=== PATIENT | male | born 1980 | race Caucasian/White ===

== ENCOUNTER 2017-12-28 19:02 | Inpatient (IN) | payer MEDICAID, OTHER ==
[2017-12-28 19:03] VITALS: BMI 25.0
--- NOTE | 2017-12-28 19:29 | C.PDOC ---
History Of Present Illness The patient presents to the ED requesting heroin detox. Patient states his last use was prior to arrival. He denies suicidal/homicidal ideation and has no physical complaints at this time. Time Seen by Provider: 12/28/17 19:29 Chief Complaint (Nursing): Substance Abuse History Per: Patient History/Exam Limitations: no limitations Onset/Duration Of Symptoms: Hrs Current Symptoms Are (Timing): Still Present Suicide/Self Injury Attempted (Context): None Modifying Factor(s): Narcotics (heroin ) Severity: None Pain Scale Rating Of: 0 Associated Symptoms: denies: Suicidal Thoughts, Suicidal Plan Involuntary Hold By: None Recent travel outside of the [place]: No Additional History Per: Patient Past Medical History Reviewed: Historical Data, Nursing Documentation, Vital Signs Vital Signs: Last Vital Signs Temp 98.7 F 12/28/17 19:11 Pulse 95 H 12/28/17 19:11 Resp 18 12/28/17 19:11 BP 96/60 L 12/28/17 19:11 Pulse Ox 94 L 12/28/17 20:34 - Medical History PMH: Bipolar Disorder, Depression, Fractures, HTN Denies: Diabetes, Hepatitis, HIV, Seizures, Sexually Transmitted Disease Surgical History: No Surg Hx Family History: States: Unknown Family Hx - Social History Hx Tobacco Use: Yes Hx Alcohol Use: No Hx Substance Use: Yes (heroin) - Immunization History Hx Tetanus Toxoid Vaccination: No Hx Influenza Vaccination: No Hx Pneumococcal Vaccination: No Review Of Systems Constitutional: Negative for: Fever, Chills Cardiovascular: Negative for: Chest Pain, Palpitations Respiratory: Negative for: Cough, Shortness of Breath Gastrointestinal: Negative for: Nausea, Vomiting, Abdominal Pain Skin: Negative for: Rash, Lesions, Jaundice, Bruising Neurological: Negative for: Weakness, Numbness Psych: Positive for: Other (heroin detox ). Negative for: Suicidal ideation Physical Exam - Physical Exam Appears: Non-toxic, No Acute Distress Skin: Warm, Dry Head: Normacephalic Eye(s): bilateral: Normal Inspection Oral Mucosa: Moist Neck: Supple Chest: Symmetrical, No Deformity, No Tenderness Cardiovascular: Rhythm Regular Respiratory: No Accessory Muscle Use Extremity: Normal ROM Neurological/Psych: Oriented x3 Gait: Steady ED Course And Treatment - Laboratory Results Result Diagrams: 12/28/17 19:50 12/28/17 19:50 O2 Sat by Pulse Oximetry: 94 Pulse Ox Interpretation: Normal Progress Note: Bloodwork and urinalysis ordered and reviewed. Disposition Discussed With .: Lesley Holt Comment: accepted the pt [facility] is service and took over the care at 9:30 PM Doctor Will See Patient In The: Hospital Counseled Patient/Family Regarding: Studies Performed, Diagnosis - Disposition Disposition: HOSPITALIZED Disposition Time: 19:29 Condition: FAIR Forms: [facility] (Nauruan) - POA Present On Arrival: None - Clinical Impression Clinical Impression: Heroin abuse - Scribe Statement The provider has reviewed the documentation as recorded by the Scribe (Diana Tran) Provider Attestation: All medical record entries made by the Scribe were at my direction and personally dictated by me. I have reviewed the chart and agree that the record accurately reflects my personal performance of the history, physical exam, medical decision making, and the department course for this patient. I have also personally directed, reviewed, and agree with the discharge instructions and disposition. Decision To Admit - Pt Status Changed To: Hospital Disposition Of: Inpatient - Admit Certification Admit to Inpatient:: After my assessment, the patient will require hospitalization for at least two midnights. This is because of the severity of symptoms shown, intensity of services needed, and/or the medical risk in this patient being treated as an outpatient. - InPatient: Physician Admission Certification: I certify that this patient requires 2 or more midnights of care for the following reason:: After my assessment, the patient will require hospitalization for at least two midnights. This is because of the severity of symptoms shown, intensity of services needed, and/or the medical risk in this patient being treated as an outpatient. - . Bed Request Type: Detox Admitting Physician: Lesley Holt Patient Diagnosis: Heroin abuse
[2017-12-28 19:54] LABS: BASO # 0.1 K/uL (0.0-0.2); BASO % 0.7 % (0.0-2.0); EOS # 0.4 K/uL (0.0-0.7); EOS % 3.6 % (0.0-4.0); HEMOGLOBIN 12.6 g/dL (12.0-18.0); LYMPH # 1.6 K/uL (1.0-4.3); MEAN CELL VOLUME 83.3 fL (80.0-94.0); MEAN CORPUSCULAR HEMOGLOBIN 28.1 pg (27.0-31.0); MEAN CORPUSCULAR HGB CONC 33.7 g/dL (33.0-37.0); MEAN PLATELET VOLUME 8.1 fL (7.2-11.7); MONO # 1.2 K/uL (0.0-0.8); MONO % 9.7 % (0.0-10.0); NEUT # 8.9 K/uL (1.8-7.0); NRBC % 0.1 % (0.0-2.0); RBC 4.48 Mil/uL (4.40-5.90); RED CELL DISTRIBUTION WIDTH 14.8 % (11.5-14.5); WHITE BLOOD COUNT 12.1 K/uL (4.8-10.8)
[2017-12-28 19:57] LABS: SQUAMOUS EPITHIAL < 1 /hpf (0-5); URINE BILIRUBIN NEGATIVE (NEGATIVE); URINE BLOOD NEGATIVE (NEGATIVE); URINE CLARITY Hazy (Clear); URINE COLOR Amber (YELLOW); URINE GLUCOSE (UA) NORMAL (Normal); URINE LEUKOCYTE ESTERASE NEG Leu/uL (Negative); URINE PROTEIN NEGATIVE (NEGATIVE)
[2017-12-28 20:07] LABS: ALB/GLOB RATIO 2.1 (1.0-2.1); ALT/SGPT 24 U/L (21-72); AST/SGOT 10 U/L (17-59); BLOOD UREA NITROGEN 12 mg/dL (9-20); CALCIUM 8.2 mg/dl (8.6-10.4); GFR NON-AFRICAN AMERICAN > 60
[2017-12-28 20:15] LABS: BARBITURATES, UR NEGATIVE (NEGATIVE); BENZODIAZEPINES, UR NEGATIVE (NEGATIVE); PHENCYCLIDINE, UR NEGATIVE (NEGATIVE)
[2017-12-28 20:16] LABS: OPIATES, UR POSITIVE (NEGATIVE)
--- NOTE | 2017-12-28 21:52 | PCM.BM ---
<JonoAna María - Last Filed: 12/28/17 21:51> Treatment Plan Problems - Problems identified on initial assessmt Potential for opiate withdrawal Date Initiated: 12/28/17 Time Initiated: 21:51 Assessment reference: NA Status: Active Treatment assets and liabiliti Patient Assests: ADL independent, negotiates basic needs, cognitively intact Patient Liabilities: substance abuse (opiate), medical problems (HTN) - Milieu Protocol Maintain good personal hygiene: daily Encourage regular showers, daily Remind patient to perform daily oral care, daily Assist patient to perform ADL's Conduct patient checks and document Observation sheet: Q15 minutes Maintain personal safety: every shift Educate patient to report safety concerns to staff, every shift Monitor environment for contraband/sharps Medication safety: Monitor for expected outcome, potential side effects: every shift, Assess barriers to learning: every shift, Assess readiness for medication education: every shift <Rose Tavarez - Last Filed: 12/30/17 10:45> Family Contact Family involvement: Famliy/SO not involved - Goals for Treatment Patient goals for treatment: Complete detox and transition to outpatient counseling. Discharge/Continuing Care - Education Needs Education Needs: Patient Medication, Patient Diagnosis/Disease Process, Patient Coping Skills, Patient Anger Management skills, Patient Placement options, Patient Community resources - Discharge Discharge Criteria: No longer exhibiting s/s of withdrawal, Reduction of target symptoms Discharge to:: Home, With Family - Additional Comments 12/30/17 10:44 "I have to go back to work. I can do outpatient ok".
[2017-12-28] MEDS ORDERED: Aluminum Hydroxide/Magnesium Hydroxide Susp (30 mL) PO PRN (22:31)
[2017-12-29] MEDS ORDERED: Albuterol HFA 90 mcg/actuation (8 g) INH PRN (08:00)
[2017-12-29] MEDS ORDERED: Buprenorphine Hydrochloride 2 mg SL ONE ×2 (09:49→11:00)
--- NOTE | 2017-12-29 23:49 | PCM.PSYCH ---
Initial Psychiatric Evaluation - Initial Psychiatric Evaluation Type of Admission: Voluntary Legal Status: Capacity Chief Complaint (in patient's own words): "I am withdrawing" History of Present Illness and Precipitating Events: The pt is a 37 year old male who is single, has no children, and lives with his friend. 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 Chart reviewed, case discussed. Pt presenting for opioid detoxification. He states that he snorted 10 bags of heroin. The last time he used heroin was yesterday. He has been using it for four years now. He underwent detoxification few years ago, but then relapsed afterwards. He denies having any rehabs for it. He reports not finding any other detox that will take him. Pt also admitted to abusing cocaine (4 bottles) intranasally about once or twice a week. Pt also smokes cigarettes, 1 pack/day. He denies EtOH use, as well as benzodiazepines. He denies using other form of drugs. Psych Hx: Pt has felt depressed lately. He denies feeling tired or lonely. He denies having any manic episodes. Pt also states that he hears voices when he uses. Pt denies panic attacks, OCD, SI, HI but he feels depressed. Pt denies any traumatic Hx. He was given Lynbrook but he doesn't know why and doesn't report levon. Medical Hx: hypertension. Uncontrolled Family psychiatry Hx: Unremarkable Current Medications: Active Medications Generic Name Dose Route Start Last Admin Trade Name Freq PRN Reason Stop Dose Admin Al Hydrox/Mg Hydrox/Simethicone 30 ml 12/28/17 22:31 Maalox 30 Ml PO TID PRN Indigestion / Heartburn Albuterol 1 puff 12/29/17 08:00 12/29/17 09:10 Ventolin Hfa 90 Mcg/Actuation (8 G) INH 1 puff RQ4 PRN Administration Shortness of Breath Clonidine HCl 0.1 mg 12/28/17 22:31 Catapres PO Q8 PRN COWS Score More or Equal to 5 Hydroxyzine HCl 50 mg 12/28/17 22:27 12/28/17 22:34 Atarax PO 50 mg Q6H PRN Administration Anxiety Loperamide HCl 2 mg 12/28/17 22:31 Imodium PO Q8 PRN Diarrhea Nicotine 1 patch 12/29/17 10:00 12/29/17 09:11 Nicoderm Cq TD 1 patch DAILY MARIAH Administration Ondansetron HCl 4 mg 12/28/17 22:31 Zofran Tab PO Q8 PRN Nausea/Vomiting Quetiapine Fumarate 100 mg 12/29/17 22:00 12/29/17 21:32 Seroquel PO 100 mg HS MARIAH Administration Trazodone HCl 100 mg 12/28/17 22:27 12/29/17 21:33 Desyrel PO 100 mg HS PRN Administration Insomnia Past Psychiatric History - Past Psychiatric History Previous Treatment History: None Pertinent Medical Hx (Current Medical&Sleep Prob, Allergies): Allergies Allergy/AdvReac Type Severity Reaction Status Date / Time No Known Allergies Allergy Verified 04/20/17 00:43 Gabapentin [Neurontin] 300 mg PO TID 12/28/17 Lynbrook Carbonate [Lynbrook Carbonate 300MG] 300 cap PO TID 12/28/17 Review of Systems - Psychiatric Psychiatric: Abnormal Sleep Pattern, Anhedonia, Anxiety, Depression, Difficulty Concentrating. absent: Hallucinations, Homicidal Ideation, Irritability, Paranoia, Suicidal Ideation Mental Status Examination - Personal Presentation Personal Presentation: Looks older than stated age - Affect Affect: Constricted - Motor Activity Motor Activity: Calm - Reliability in Providing Information Reliability in Providing Information: Good - Speech Speech: Organized - Mood Mood: Depressed, Anxious - Formal Thought Process Formal Thought Process: No Impairment - Cognitive Functions Orientation: Person, Place, Situation, Time Sensorium: Alert Attention/Concentration: Easily distracted Abstract Thinking: [place] Estimate of Intelligence: Average Judgement: Intact, as evidence by: Insight regarding need for hospitalization Memory: Recent intact, as evidence by: Ability to recall events of the day, Remote impaired as evidenced by: Inability to recall sig life events - Risk Risk: Withdrawal, Diminished functioning - Strength & Assets Inventory Strength & Assets Inventory: Cooperative - Limitations Limitations: Living alone DSM 5 DX - DSM 5 DSM 5 Diagnosis: Opioid withdrawal Opioid use d/o - severe Cocaine use d/o - severe Major depression, recurrent, modertae SCARLET r/o bipolar type II Tobacco use d/o - severe - Recommended/Plan of Treatment Treatment Recommendations and Plan of Treatment: Subutex detox Seroquel for depression Atarax for anxiety As needed medications Gabapentin for augmentation All risks, benefits and alternatives of medications, including no medications, discussed and the patient understood and agreed. Attend groups and activities Supportive therapy and psychoeducation MT for abstinence CBT for relapse prevention Encourage MAT Refer to rehab or IOP Attend self-help groups as well MT for smoking cessation and patch if needed 34 min Projected ELOS: 4-5 days Prognosis: good w treatment - Smoking Cessation Smoking Cessation Initiated: Yes
[2017-12-30] MEDS: Buprenorphine Hydrochloride 2 mg SL SCH (09:11)
--- NOTE | 2017-12-30 13:24 | PCM.PYCHPN ---
Psychiatric Progress Note - Psychiatric Progress Note Patient seen today, length of contact: 16 min Patient Chief Complaint: "I don't sleep well" Problems Identified/Issues Discussed: The pt is seen, chart reviewed, case discussed with staff. The pt is compliant with medications and reports no side-effects. Symptoms are improving but needs more time to stabilize. Anxious and had poor sleep - Both addressed Pt attends groups and activities. Support given, psycho-education provided. After care discussed. Medication Change: Yes (detox changes daily) Medical Record Reviewed: Yes Mental Status Examination - Cognitive Function Orientation: Person, Place, Situation, Time Memory: Intact Attention: Poor Concentration: Poor Association: WNL Fund of Knowledge: Poor - Mood Mood: Depressed, Anxious - Affect Affect: Constricted - Speech Speech: Appropriate - Formal Thought Process Formal Thought Process: No Impairment - Suicidal Ideation Suicidal Ideation: No - Homicidal Ideation Homicidal Ideation: No Goal/Treatment Plan - Goal/Treatment Plan Need for Continued Stay: Discharge may exacerbated symptoms, Severe functional impairment Progress Toward Problem(s) and Goals/Treatment Plan: Subutex detox Seroquel for depression Atarax for anxiety As needed medications Gabapentin for augmentation All risks, benefits and alternatives of medications, including no medications, discussed and the patient understood and agreed. Attend groups and activities Supportive therapy and psychoeducation [place] for abstinence CBT for relapse prevention Encourage MAT Refer to rehab or IOP Attend self-help groups as well [place] for smoking cessation and patch if needed Estimated Date of D/C: 01/02/18
[2017-12-31] MEDS: Buprenorphine Hydrochloride 2 mg SL SCH (09:10)
--- NOTE | 2017-12-31 14:21 | PCM.PYCHPN ---
Psychiatric Progress Note - Psychiatric Progress Note Patient seen today, length of contact: 16 min Patient Chief Complaint: "I want to leave" Problems Identified/Issues Discussed: The pt is seen, chart reviewed, case discussed with staff. Support and psychoeducation given, CBT and HI used briefly No new symptoms reported, improving slowly and needs more time No SEs from medications, risks discussed. After care discussed - he agreed to stay one more day and have regular d/c He has some "street suboxone at home" and plans to use it - risks discussed Medication Change: Yes (detox changes daily) Medical Record Reviewed: Yes Mental Status Examination - Cognitive Function Orientation: Person, Place, Situation, Time Memory: Intact Attention: Poor Concentration: Poor Association: WNL Fund of Knowledge: Poor - Mood Mood: Depressed, Anxious - Affect Affect: Constricted - Speech Speech: Appropriate - Formal Thought Process Formal Thought Process: No Impairment - Suicidal Ideation Suicidal Ideation: No - Homicidal Ideation Homicidal Ideation: No Goal/Treatment Plan - Goal/Treatment Plan Need for Continued Stay: Discharge may exacerbated symptoms, Severe functional impairment Progress Toward Problem(s) and Goals/Treatment Plan: Subutex detox Seroquel for depression Atarax for anxiety As needed medications Gabapentin for augmentation All risks, benefits and alternatives of medications, including no medications, discussed and the patient understood and agreed. Attend groups and activities Supportive therapy and psychoeducation [place] for abstinence CBT for relapse prevention Encourage MAT Refer to rehab or IOP Attend self-help groups as well [place] for smoking cessation and patch if needed Estimated Date of D/C: 01/02/18
[2018-01-01 06:11] VITALS: TEMP 97.7
[2018-01-01] MEDS: Buprenorphine Hydrochloride 2 mg SL SCH (09:24)
[2018-01-01 11:18] VITALS: BP 94/58; PULSE 62; RESP 18; O2SAT 92
--- NOTE | 2018-01-02 15:43 | PCM.PYCHDC ---
Mental Status Examination - Mental Status Examination Orientation: Person Discharge Summary - Discharge Note Consultations:: List each consultation separately and include: 1. Reason for request. 2. Findings. 3. Follow-up Summary of Hospital Course include:: 1. Description of specific treatment plan utilized for patients during their course of treatmen. 2. Summarize the time- course for resolution of acute symptoms and/or regressed behaviors. 3. Describe issues identified and worked on during hospitalization. 4. Describe medication utilized. 5. Describe medical problems identified and treated. 6. Reassessment of suicide risk Summary of Hospital Course: The pt is a 37 year old male who is single, has no children, and lives with his friend. 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 Chart reviewed, case discussed. Pt presenting for opioid detoxification. He states that he snorted 10 bags of heroin. The last time he used heroin was yesterday. He has been using it for four years now. He underwent detoxification few years ago, but then relapsed afterwards. He denies having any rehabs for it. He reports not finding any other detox that will take him. Pt also admitted to abusing cocaine (4 bottles) intranasally about once or twice a week. Pt also smokes cigarettes, 1 pack/day. He denies EtOH use, as well as benzodiazepines. He denies using other form of drugs. Psych Hx: Pt has felt depressed lately. He denies feeling tired or lonely. He denies having any manic episodes. Pt also states that he hears voices when he uses. Pt denies panic attacks, OCD, SI, HI but he feels depressed. Pt denies any traumatic Hx. He was given [place] but he doesn't know why and doesn't report levon. Medical Hx: hypertension. Uncontrolled Family psychiatry Hx: Unremarkable NA meeting list for [place] provided to pt and he will try [facility] IOP - Final Diagnosis (DSM 5) Condition upon Discharge: FAIR Disposition: HOME/ ROUTINE Follow-up Treatment Plan: Subutex detox Seroquel for depression Atarax for anxiety As needed medications Gabapentin for augmentation All risks, benefits and alternatives of medications, including no medications, discussed and the patient understood and agreed. Attend groups and activities Supportive therapy and psychoeducation [place] for abstinence CBT for relapse prevention Encourage MAT Refer to rehab or IOP Attend self-help groups as well [place] for smoking cessation and patch if needed Prescriptions/Medication Reconciliation: traZODone [Desyrel] 100 mg PO HS PRN #30 tab PRN Reason: Insomnia
== END 2018-01-01 12:00 | disposition home or self-care (01) | DRG 745 ==
LOC: C.ER 19:02 → C.7D 21:29
PROVIDERS: ADMIT Psychiatry & Neurology Psychiatry; ATTEND Psychiatry & Neurology Psychiatry
PROC: HZ2ZZZZ Detoxification Services for Substance Abuse Treatment (ICD-10-PCS; principal; 2017-12-28)
PROC: HZ59ZZZ Individual Psychotherapy for Substance Abuse Treatment, Supportive (ICD-10-PCS; 2017-12-28)
PROC: GZ3ZZZZ Medication Management (ICD-10-PCS; 2017-12-28)
PROC: HZ46ZZZ Group Counseling for Substance Abuse Treatment, Psychoeducation (ICD-10-PCS; 2017-12-28)
PROC: HZ80ZZZ Medication Management for Substance Abuse Treatment, Nicotine Replacement (ICD-10-PCS; 2017-12-28)
PROC: GZHZZZZ Group Psychotherapy (ICD-10-PCS; 2017-12-28)
DX: F11.23 Opioid dependence with withdrawal (principal); F14.90 Cocaine use, unspecified, uncomplicated; F33.9 Major depressive disorder, recurrent, unspecified; F17.210 Nicotine dependence, cigarettes, uncomplicated; F31.9 Bipolar disorder, unspecified; F41.9 Anxiety disorder, unspecified; I10 Essential (primary) hypertension

== ENCOUNTER 2018-01-05 18:19 | Emergency (ER) | payer OTHER ==
[2018-01-05 18:19] VITALS: BMI 25.0
[2018-01-05 18:37] VITALS: BP 95/58; PULSE 85; TEMP 98.6; O2SAT 100
--- NOTE | 2018-01-05 18:56 | C.PDOC ---
History Of Present Illness 37 year old male with a history of polysubstance abuse presents to the emergency for evaluation of generalized body aches developed over the past few days. Patient also requests a detox admission. Pt reports, " usually take Gabapentin but dont have anymore". Pt admits, was discharged from detox floor 2 days ago " take my sleeping pill and still cant sleep. I lost my house too". Otherwise, pt denies fever, chills, headaches, dizziness, drooling, neck pain, CP, SOB, dyspnea, palpitation, abd. pain, vomiting, diarrhea, denies homocidal or suicidal ideation. Ambulate to ED for evaluation, not in nay apparent distress. FYI: ED records review, pt was last seen on 12/28/17 when blood work performed and admitted to detox. Blood work review/no acute abnormalities. Pt was discharged from detox on 01/01/18. Time Seen by Provider: 01/05/18 18:43 Chief Complaint (Nursing): Substance Abuse History Per: Patient History/Exam Limitations: no limitations Onset/Duration Of Symptoms: Days Current Symptoms Are (Timing): Still Present Suicide/Self Injury Attempted (Context): None Modifying Factor(s): Other (heroin) Associated Symptoms: Other (body aches). denies: Suicidal Thoughts, Suicidal Plan Past Medical History Reviewed: Historical Data, Nursing Documentation, Vital Signs Vital Signs: Last Vital Signs Temp 98.6 F 01/05/18 18:34 Pulse 85 01/05/18 18:34 Resp 20 01/05/18 19:58 BP 95/58 L 01/05/18 18:34 Pulse Ox 100 01/05/18 21:43 - Medical History PMH: Bipolar Disorder, Depression, Fractures, HTN Denies: Diabetes, Hepatitis, HIV, Seizures, Sexually Transmitted Disease Surgical History: No Surg Hx - [facility] DETOXIFICATION SERVICES FOR SUBSTANCE ABUSE TREATMENT (12/28/17) GROUP VEHICLE MECHANIC FOR SUBSTANCE ABUSE TREATMENT, PSYCHOEDUCATION (12/28/17) GROUP PSYCHOTHERAPY (12/28/17) INDIV PSYCHOTHERAPY FOR SUBSTANCE ABUSE TREATMENT, SUPPORT (12/28/17) MEDICATION MANAGEMENT (12/28/17) MEDS MGMT FOR SUBSTANCE ABUSE TREATMENT, NICOTINE REPLACE (12/28/17) Family History: States: No Known Family Hx - Social History Hx Tobacco Use: Yes Hx Alcohol Use: No Hx Substance Use: Yes ("crack"; Marijuana, Heroin) - Immunization History Hx Tetanus Toxoid Vaccination: No Hx Influenza Vaccination: No Hx Pneumococcal Vaccination: No Review Of Systems Except As Marked, All Systems Reviewed And Found Negative. Constitutional: Positive for: Malaise. Negative for: Fever, Chills Gastrointestinal: Negative for: Vomiting, Abdominal Pain Neurological: Negative for: Headache, Dizziness Physical Exam - Physical Exam Appears: Well, Non-toxic, No Acute Distress Skin: Warm, Dry, No Rash, No Ecchymosis Head: Atraumatic, Normacephalic Eye(s): bilateral: PERRL Nose: No Flaring, No Discharge Oral Mucosa: Moist Tongue: Normal Appearing Lips: Normal Appearing Throat: No Erythema, No Drooling Neck: Trachea Midline, No Midline Cervical Tenderness, No Paracervical Tenderness, No Step Off Deformity, Supple Chest: Symmetrical, No Tenderness Cardiovascular: Rhythm Regular, No Murmur, No JVD Respiratory: No Accessory Muscle Use, No Rales, No Rhonchi, No Stridor, No Wheezing Gastrointestinal/Abdominal: Soft, No Tenderness, No Distention, No Guarding, No Rebound Back: No Vertebral Tenderness, No Paraspinal Tenderness Extremity: Normal ROM (all extremities), No Tenderness, No Pedal Edema, No Deformity, No Swelling Neurological/Psych: Oriented x3, Normal Speech, Normal Cognition, Normal Motor, Normal Sensation, Normal Reflexes ED Course And Treatment O2 Sat by Pulse Oximetry: 100 (RA) Pulse Ox Interpretation: Normal Progress Note: Plan: Motrin 600mg PO. Neurontin 300mg PO. On re-eavl, pt is afebrile, hemodynamicaly stable. Non-toxic, tolerate PO well in ED. Ambulatory with stable gait. PulseOx 100% RA. ENT: no acute findings. Uvula midline, no edema. neck: Supple, (-) midline tenderness, (-) JVD. Lungs: CTA B /L, BS equal B/L. CVS: (+)S1S2, reg. Abd: benign. Neurologicaly intact. case discussed and pt was seen by furniture lumber production worker Laura, who gave outpt f/u list. As per Laura, pt is not eligibale for detox admission now. Pt advised and ref. to f/u with PMD, Psych, DEtox in 2 -3 days for re-eavl. return to ED if any worsening or new changes. Disposition Counseled Patient/Family Regarding: Diagnosis, Need For Followup - Disposition Referrals: Alcoholics Anonymous [Outside] Community [facility] [Outside] [facility] [Outside] Disposition: HOME/ ROUTINE Disposition Time: 19:31 Condition: STABLE Additional Instructions: Follow up with PMD in 2-3 days for [id number]. return to ED if any worsening or new changes Prescriptions: Gabapentin [Neurontin] 300 mg PO BID #10 cap Instructions: Chronic Pain, Polysubstance Abuse Forms: [facility] (Slovak) - Clinical Impression Clinical Impression: Drug abuse, Chronic pain - PA / DENTAL FRONT OFFICE ASSISTANT / Resident Statement MD/DO has reviewed & agrees with the documentation as recorded. - Scribe Statement The provider has reviewed the documentation as recorded by the Scribe (Surya Henson) All medical record entries made by the Scribe were at my direction and personally dictated by me. I have reviewed the chart and agree that the record accurately reflects my personal performance of the history, physical exam, medical decision making, and the department course for this patient. I have also personally directed, reviewed, and agree with the discharge instructions and disposition.
[2018-01-05 19:59] VITALS: RESP 20
== END 2018-01-05 19:58 | disposition home or self-care (01) ==
LOC: C.ER 18:19
DX: G89.29 Other chronic pain (principal); F19.10 Other psychoactive substance abuse, uncomplicated